=== PATIENT | male | born 1930 | race Caucasian/White ===

== ENCOUNTER 2017-11-01 11:03 | Outpatient (RCR) | payer MEDICARE, OTHER ==
[~2017-11-01 11:03] MED LIST: AMIODARONE PO; ATORVASTATIN CA10 MG PO; COUMADIN5 MG PO; DOXAZOSIN MESYLA4 MG PO; FUROSEMIDE20 MG PO; KLOR-CON 1010 MEQ PO; LANOXIN125 MCG PO; PACERONE200 MG PO; PROSCAR5 MG PO; TOPROL XL50 MG PO; WARFARIN SODIU2.5 MG PO
== END 2017-11-27 ==
LOC: PT 11:03
PROVIDERS: ATTEND Specialist
DX: M17.11 Unilateral primary osteoarthritis, right knee (principal)
CPT/HCPCS: 97110; 97161; G8978; G8979; G8980

== ENCOUNTER → 2018-07-15 | Day surgery (SDC) | payer MEDICARE, OTHER ==
[2018-07-13 14:57] LABS: BASOPHILS # (AUTO) 0.1 (0.0-0.1); EOSINOPHILS # (AUTO) 0.4 (0.0-0.4); EOSINOPHILS % 3.7 % (0.0-6.0); HEMATOCRIT 34.3 % (38.2-49.6); HEMOGLOBIN 11.4 g/dL (14.0-18.0); LYMPHOCYTES # (AUTO) 1.6 (1.0-3.2); LYMPHOCYTES % 16.2 % (18.0-39.1); MEAN CORPUSCULAR HEMOGLOBIN 35.1 pg (28-32); MEAN CORPUSCULAR HGB CONC 33.2 g/dL (31-35); MEAN CORPUSCULAR VOLUME 105.5 fL (81-99); MONOCYTES # (AUTO) 1.1 (0.2-0.8); MONOCYTES % 11.5 % (4.4-11.3); NEUTROPHILS # (AUTO) 6.6 (2.1-6.9); NEUTROPHILS % 67.4 % (38.7-80.0); PLATELET COUNT 210 x10e3/uL (140-360); RED BLOOD COUNT 3.25 x10e6/uL (4.3-5.7); RED CELL DISTRIBUTION WIDTH 14.6 % (11.7-14.4)
[2018-07-13 15:23] LABS: ANION GAP 15.5 mmol/L (8-16); CALCIUM 8.6 mg/dL (8.4-10.2); CREATININE, SERUM 1.37 mg/dL (0.72-1.25); POTASSIUM 4.5 mmol/L (3.5-5.1)
--- NOTE | 2018-07-13 15:46 | Diagnostic Imaging Report ---
EXAMINATION: CHEST 2 VIEWS INDICATION: Colonic polyps. Preop. Chest pain COMPARISON: None FINDINGS: TUBES and LINES: Left anterior chest dual-lead cardiac device. LUNGS: Lungs are well inflated. Lungs are clear. There is no evidence of pneumonia or pulmonary edema. PLEURA: No pleural effusion or pneumothorax. HEART AND MEDIASTINUM: The cardiomediastinal silhouette is unremarkable. BONES AND SOFT TISSUES: No acute osseous lesion. Soft tissues are unremarkable. UPPER ABDOMEN: No free air under the diaphragm. IMPRESSION: No acute thoracic abnormality. Signed by: Dr. Jesús Carey M.D. on 07/13/2018 3:43 PM
[~2018-07-15] MED LIST changes: +CARDURA4 MG PO; +LIDOCAINE HCL 2% LOCAL INJ 5 ML SDV VIAL INJ ONE; +MULTI-VITAMIN1 EACH PO; +PROPOFOL IV EMULSION 10 MG/ML 20 ML VIAL ONE
--- OUTSIDE RECORDS SUMMARY | 2018-07-15 05:38 | XMS REPORT ---
Author Author [facility] Address Unknown Phone Unavailable Care Team Providers Care Supervisor Finishing Department Name Role Phone Juliana GONZALES Unavailable Unavailable Problems This patient has no known problems. Allergies, Adverse Reactions, Alerts This patient has no known allergies or adverse reactions. Medications This patient has no known medications. Results Test Description Test Time Test Comments Text Results Atomic Results Result Comments CHEST 2 VIEWS 2018-07-13 15:41:00 [facility] [address] [address] Patient Name: CHRISTINA GUERRA MR #: [id number] : 1930 Age/Sex: 87/M Req #: [id number] [facility] Physician: Ordered by: TORRIE GONZALES MD Report #: [id number] Location: OR Room/Bed: Procedure: [id number] DX/CHEST 2 VIEWS Exam Date: Exam Time: REPORT STATUS: Signed EXAMINATION: CHEST 2 VIEWS INDICATION: Colonic polyps. Preop. Chest pain COMPARISON: None FINDINGS: TUBES and LINES: Left anterior chest dual-lead cardiac device. LUNGS: Lungs are well inflated. Lungs are clear. There is no evidence of pneumonia or pulmonary edema. PLEURA: No pleural effusion or pneumothorax. HEART AND MEDIASTINUM: The cardiomediastinal silhouette is unremarkable. BONES AND SOFT TISSUES: No acute osseous lesion. Soft tissues are unremarkable. UPPER ABDOMEN: No free air under the diaphragm. IMPRESSION: No acute thoracic abnormality. Signed by: Dr. Jesús Carey M.D. on 07/13/2018 3:43 PM Dictated By: JESÚS CAREY MD, MD 42 Transcribed By: CHRISTOPH on 07/13/181542 COPY TO: TORRIE GONZALES MD CHEST 2 VIEWS [address] [address] Patient Name: CHRISTINA GUERRA MR #: [id number] : 1930 Age/Sex: 86/M Req #: [id number] Adm Physician: Ordered by: TORRIE GONZALES MD Report #: [id number] Location: OR Room/Bed: Procedure: [id number] DX/CHEST 2 VIEWS Exam Date: 06/16/17 Exam Time: 1526 REPORT STATUS: Signed PROCEDURE: Frontal and lateral views of the chest. COMPARISON: [facility], , CHEST 2 VIEWS, 01/17/2015, 8:45. INDICATIONS: PRE-OP COLONOSCOPY FINDINGS: Lines/tubes: None. Dual-lead left-sided cardiac pacemaker. Lungs: The lungs are well inflated and clear. There is no evidence of pneumonia or pulmonary edema. Pleura: There is no pleural effusion or pneumothorax. Heart and med iastinum: The cardiac silhouette is moderately enlarged. Bones: No acute bony abnormality. IMPRESSION: 1. Cardiomegaly without acute decompensation. Connor Willams, Dictated by: on 06/16/2017 at 16:05 Bella Robison Electronically approved by: Connor Willams M.D. on 06/16/2017 at 16:05 Dictated By: JORDAN WILLAMS MD, MD [id number] Transcribed By: BANDAR on 06/16/17 1605 COPY TO: TORRIE GONZALES MD
[2018-07-15 06:51] LABS: INR 1.18
[2018-07-15 06:52] LABS: PARTIAL THROMBOPLASTIN TIME 34.8 seconds (23.8-35.5)
[2018-07-15 09:25] VITALS: BP 112/76
== END | disposition home or self-care (01) ==
LOC: OR 05:35
PROVIDERS: ATTEND Surgery
DX: Z09 Encounter for follow-up examination after completed treatment for conditions other than malignant neoplasm (principal); K62.1 Rectal polyp; G47.33 Obstructive sleep apnea (adult) (pediatric); M19.90 Unspecified osteoarthritis, unspecified site; I25.10 Atherosclerotic heart disease of native coronary artery without angina pectoris; Z95.0 Presence of cardiac pacemaker; Z79.01 Long term (current) use of anticoagulants; Z01.810 Encounter for preprocedural cardiovascular examination; Z01.812 Encounter for preprocedural laboratory examination; Z01.818 Encounter for other preprocedural examination
CPT/HCPCS: 36415 ×2; 45385; 71046; 80048; 85025; 85610; 85730; 88305; 93005; J2001; J2704; 45378